=== PATIENT | male | born 1980 ===

== ENCOUNTER 2016-06-25 19:37 | Emergency (ER) | payer SELFPAY ==
[2016-06-25] MEDS ORDERED: IBUPROFEN 600 MG TABLET ONE (20:15)
[2016-06-25] MEDS ORDERED: OXYCODONE HCL 5 MG TABLET ONE (20:15)
[2016-06-25] MEDS ORDERED: AMOX 875 MG/CLAV 125 MG 1 EACH TABLET ONE (20:15)
== END 2016-06-25 20:30 | disposition home or self-care (01) ==
LOC: ED 19:37
DX: K04.7 Periapical abscess without sinus (principal)
CPT/HCPCS: 99283 ×2; A9270 ×3